=== PATIENT | female | born 1955 | race Caucasian/White ===

== ENCOUNTER 2020-12-14 20:12 | Emergency (ER) | payer MEDICARE, SELFPAY ==
[2020-12-14 20:07] VITALS: BP 155/74; PULSE 68; RESP 12; TEMP 36.9; O2SAT 100; BMI 27.2
--- NOTE | 2020-12-14 20:14 | XR_ITS ---
PROCEDURE: XR KNEE RT 3V CLINICAL INDICATION: knee pain COMPARISON: No exams were available for comparison FINDINGS: There is a faint lucency along medial aspect of the medial tibial plateau. This is only seen on one view. This could represent a nondisplaced fracture or an overlying artifact. CT may confirm if clinically warranted. Minimal osteoarthritic changes are noted. Other findings:None. IMPRESSION: Possible nondisplaced medial tibial plateau fracture. Consider CT for confirmation if clinically warranted. Dictated by: Margarito Peguero MD 12/15/2020 05:57 Margarito Peguero MD in [place] 12/15/2020 05:59
--- NOTE | 2020-12-14 20:44 | HMH.EDLOEX ---
ED Disposition Clinical Impression: Pain of meniscus of right knee Knee pain, right Qualifiers: Chronicity: unspecified Qualified Code(s): M25.561 - Pain in right knee Disposition: Home, Self-Care Condition on Discharge: Good Instructions: DI for Knee Pain Additional Instructions: advil/tyenol and see ortho for f/u and use splint as needed Referrals: Darwin Gross MD [Primary Care Provider] - Jonatan Velazquez MD [Staff Physician] - - Critical Care Critical Care Time: No Attestation: On 12/14/20, the high probability of a clinically significant, sudden or life threatening deterioration of the following system(s) required my full and direct attention, intervention and personal management. The time I documented below is in addition to time spent performing reported procedures but includes the following listed in this critical care notation. Medical Decision Making - Medical Records Medical records reviewed: Yes: I reviewed the patient's medical records. - Price Inquiry Pt receiving controlled substance: No Vital Signs: 12/14/20 20:07 Temperature 98.4 F Temperature Source Oral Pulse Rate [Right Brachial] 68 Respiratory Rate 12 Blood Pressure [Right Arm] 155/74 H Blood Pressure Mean [Right Arm] 101 Blood Pressure Source [Right Arm] Automatic Cuff Blood Pressure Position [Right Arm] Sitting 02 Sat by Pulse Oximetry 100 Oxygen Delivery Method Room Air Orders (Tests/Meds): ORDERS Category Date Time Status XR knee RT 3V Stat Exams 12/14/20 20:14 Ordered - Radiology Data #1 Image(s): Knee Image Reviewed: Yes I reviewed the patient's radiology image Preliminary Findings: No Fracture Seen Medical Decision Narrative: will need ortho eval Lower Extremity Injury HPI - General Chief Complaint: PAIN Stated Complaint: rt knee pain, fall 9 mos prior Time Seen by Provider: 12/14/20 20:30 Mode of Arrival: EMS Source of Information: Patient, EMS, Medical Record Limitations: No Limitations Description of Symptoms (Recalled from ER Triage Doc. by RN): pt presents for complaints of right knee pain, no recent injury. i think its dislocated ; pt states she fell approx 9 months ago and wants to get surgery on it. - History of Present Illness HPI Narrative: pt with prev injury to rt knee about 9 months ago and since has pain and feeling of instability with wt bearing - she has seen pcp - no hip pain or other jt c/o MD complaint: knee injury Onset (ago): week(s) Injury: Right: knee Type of Injury: unknown Place: home Severity: moderate Associated symptoms: able to partially bear weight Other symptoms: none - Related Data Home Medications Medication Instructions Recorded Confirmed No Known Home Medications 12/14/20 12/14/20 Allergies Allergy/AdvReac Type Severity Reaction Status Date / Time No Known Allergies Allergy Verified 12/14/20 20:12 [facility] History - Hepatitis A Screen Drug use history?: No High risk sexual behaviors?: No History of sexually transmitted infection?: No Currently employed?: No Childcare worker?: No Do you have indoor plumbing?: Yes Do you have electricity?: Yes Attestation statement:: This patient has been screened for Hepatitis A risk factors. I have reviewed the patient's past medical history: Yes ROS Obtained: Yes All systems reviewed & no additional complaints - Constitutional Constitutional: Denies fever(s) - Eyes Eyes: Denies change in vision - ENT Ears, Nose, Mouth, and Throat: Denies sore throat - Cardiovascular Cardiovascular: Denies chest pain - Respiratory Respiratory: Denies shortness of breath - Gastrointestinal Gastrointestingal: Denies: abdominal pain - Genitourinary Female Genitourinary: Denies pelvic pain - Musculoskeletal Musculoskeletal: Reports as per HPI, Reports joint pain, Denies joint swelling, Reports limited range of motion - Integumentary/Breasts Skin/Breast: Denies rash - Jimena
[2020-12-14 21:06] VITALS: BP 142/71; PULSE 71; RESP 15; TEMP 36.8; O2SAT 98
== END 2020-12-14 21:09 | disposition home or self-care (01) ==
PROVIDERS: Emergency Provider Emergency Medicine; PCP Family Medicine
DX: M25.561 Pain in right knee (principal)
CPT/HCPCS: 73562; 96365; 99282

== ENCOUNTER 2021-03-17 22:31 | Observation (INO) | payer MEDICARE, SELFPAY ==
--- NOTE | 2021-03-17 22:26 | ECG_ITS ---
APPROVED REPORT Exam: Resting ECG HR:53 bpm ECG Measurements Heart Rate 53 AXES OR 134 P 70 QRSd 88 QRS 76 QT 440 T 74 QTc 412 Conclusion Sinus bradycardia Otherwise normal ECG Electronically signed by : Sher Landrum, 03/19/2021 15:03:25
[2021-03-17 22:30] VITALS: BP 137/82; PULSE 65; RESP 18; TEMP 36.7; O2SAT 98; BMI 23.4
[2021-03-17 22:36] VITALS: BMI 23.4
[2021-03-17 22:48] LABS: Basophils # 0.1 K/mm3 (0-0.2); Basophils % 1.4 % (0.1-2.0); Eosinophils # 0.3 K/mm3 (0.0-0.4); Eosinophils % 4.8 % (0.1-12.0); Lymphocytes # 2.9 K/mm3 (0.7-4.5); Lymphocytes % 43.9 % (10-50); Mean Corpuscular HGB Conc 33.3 g/dL (31.8-35.4); Mean Corpuscular Hemoglobin 31.7 pg (27.0-31.2); Mean Corpuscular Volume 95.2 fl (81-99); Mean Platelet Volume 7.8 fl (7.4-10.4); Monocytes # 0.3 K/mm3 (0.1-1.0); Monocytes % 3.9 % (1.7-9.3); Platelet Count 223 K/mm3 (142-424); Red Cell Distribution Width 12.5 % (11.5-17.5); White Blood Count 6.6 K/mm3 (4.8-10.8)
[2021-03-17 22:49] LABS: Alanine Aminotransferase 12 U/L (12-78); Albumin Level 3.8 g/dl (3.5-5.0); Alkaline Phosphatase 85 U/L (38-126); Anion Gap 6.7 mEq/L (5-15); Aspartate Amino Transferase 20 U/L (14-36); Bilirubin,Direct 0.4 mg/dl (0.0-0.4); Bilirubin,Total 0.4 mg/dl (0.2-1.3); Blood Urea Nitrogen 29 mg/dl (7-17); Calcium 9.6 mg/dl (8.4-10.2); Carbon Dioxide 30 mmol/L (22.0-30.0); Chloride 105 mmol/L (98-107); Creatinine Clearance Estimated 49 mL/min (50-200); Estimated Glomerular Filt Rate 72 ml/min (>60); GFR (African American) 87 ML/MIN (>60); Glucose 104 mg/dl (74-100); Potassium 3.7 mmoL/L (3.5-5.1); Sodium 138 mmol/L (136-145); Total Protein,Serum 6.9 g/dl (6.3-8.2)
--- NOTE | 2021-03-17 22:51 | XR_ITS ---
PROCEDURE INFORMATION: Exam: XR Chest Exam date and time: 03/17/2021 10:51 PM Age: 65 years old Clinical indication: Angina pectoris; Patient HX: Chest pain; Additional info: Cp TECHNIQUE: Imaging protocol: XR of the chest. Views: 2 views. COMPARISON: No relevant prior studies available. FINDINGS: Lungs: The lungs are hyperexpanded with flattened hemidiaphragms, increased AP diameter and coarse interstitial prominence consistent with COPD. No lobar consolidation is seen. Pleural spaces: There is no pleural effusion or pneumothorax. Heart/Mediastinum: The cardiac silhouette and mediastinal contours are unremarkable. Bones/joints: The bones are demineralized but grossly intact. IMPRESSION: COPD.
[2021-03-17 22:54] LABS: C-Reactive Protein 4.7 mg/L (0-4)
[2021-03-17 23:00] VITALS: BP 132/71; PULSE 58; RESP 24; O2SAT 99
[2021-03-17 23:04] LABS: Troponin I < 0.01 ng/ml (0.00-0.034)
[2021-03-17 23:04] LABS: Lipase 194 U/L (23-300)
[2021-03-17 23:08] LABS: Procalcitonin 0.046 ng/mL (0.0-2.0)
[2021-03-17 23:11] LABS: Erythrocyte Sedimentation Rate 58 mm/hr (0-30)
[2021-03-17 23:30] VITALS: BP 146/79; PULSE 52; RESP 21; O2SAT 100
[2021-03-18] VITALS (13 sets, daily range): BP systolic 111–163; BP diastolic 68–83; PULSE 50–75; RESP 16–20; TEMP 36.5–36.7; O2SAT 96–100; BMI 26.0
--- NOTE | 2021-03-18 | CA_ITS ---
APPROVED REPORT Exam: Pharmacologic Technologist: Shantell Davidson, Ht: 4 ft 11 in Wt: 128 lbs BSA: 1.53 m2 HR: 61 bpm BP: 138/72 mmHg Medical History Medications: Naproxen,,,,, MeLOXICAM,,,,, PaXIL,,,,, Stress Test Details Test: LEXISCAN HR Resting HR: 57 bpm Max Heart Rate (APMHR): 156.234188 bpm Max HR Achieved: 103 bpm Target HR (85% APMHR): 132.038931 bpm % of APMHR: 66.03 Recovery HR: 81 bpm BP Resting BP: 138/72 mmHg Max BP: 149/76 mmHg Recovery BP: 135.0/66.0 mmHg ECG Resting ECG: Sinus lisa, cannot R/O old septal GA Clinical Exercise duration: 04:00 min Highest Stage Achieved: Exercise capacity: 1.0 METs Stress ECG Conclusion Symptoms: Mild SOA and chest discomfort. Headache and nausea. Arrhythmias/Ectopy: Occ PAC. ST-T Changes: No significant changes. Conclusion: Unremarkable Lexiscan stress. Myoview images reported separately. Test Summary REST . . . . . . . Resting REST 03:47 . . 57 . 138/ 72 . . Stage 1 . . . . . . . Cardiolite injected Stage 1 01:00 . . 98 . . . . Stage 2 01:00 . . 103 . 145/ 75 . . Stage 3 01:00 . . 93 . 145/ 77 . . Stage 4 01:00 . . 88 . 149/ 76 . Stop exercise at 04:00 RECOVERY 01:00 . . 91 . 137/ 74 . . RECOVERY 02:00 . . 80 . 137/ 74 . . RECOVERY 03:00 . . 82 . 135/ 66 . . RECOVERY 03:33 . . 80 . 135/ 66 . . Electronically signed by : Agusto Haynes, 03/18/2021 14:54:21
--- NOTE | 2021-03-18 00:14 | CT_ITS ---
PROCEDURE INFORMATION: Exam: CTA Chest With Contrast Exam date and time: 03/18/2021 12:14 AM Age: 65 years old Clinical indication: Intercostal; Patient HX: Chest pain. Smoker; Additional info: Cp TECHNIQUE: Imaging protocol: Computed tomographic angiography of the chest with contrast. 3D rendering (Not supervised by radiologist): MIP and/or 3D reconstructed images were created by the technologist. Radiation optimization: All CT scans at this facility use at least one of these dose optimization techniques: automated exposure control; mA and/or kV adjustment per patient size (includes targeted exams where dose is matched to clinical indication); or iterative reconstruction. Contrast material: ISOVUE 370; Contrast volume: 70 ml; Contrast route: INTRAVENOUS (IV); COMPARISON: CR XR CHEST 2V 03/17/2021 10:56 PM FINDINGS: Pulmonary arteries: There is no convincing evidence of a pulmonary embolus. Aorta: There is no aortic aneurysm or dissection. Lungs: There is centrilobular emphysema with mild dependent atelectasis. Pleural spaces: Unremarkable. No pneumothorax. No pleural effusion. Heart: Cardiac chambers appear grossly unremarkable and there is no pericardial effusion. Mediastinal space: There is a small hiatal hernia. Lymph nodes: There are mildly prominent lymph nodes in the mediastinum and both tere of unknown etiology. These may be reactive. Gallbladder and bile ducts: The gallbladder is surgically absent. Kidneys and ureters: There is a prominent extrarenal pelvis on the left. Bones/joints: No acute osseous abnormality Soft tissues: Unremarkable. IMPRESSION: 1. No convincing evidence of a significant pulmonary embolus. 2. Mild centrilobular emphysema. 3. Nonspecific mildly prominent mediastinal and hilar lymph nodes which may be reactive. 4. Status post cholecystectomy. 5. Small hiatal hernia. 6. Prominent extrarenal pelvis within left kidney.
--- NOTE | 2021-03-18 01:20 | HMH.EDCP ---
ED Disposition Clinical Impression: Tobacco abuse Chest pain Qualifiers: Chest pain type: precordial pain Qualified Code(s): R07.2 - Precordial pain Disposition: Admitted as Observation Condition on Discharge: Good Referrals: Darwin Gross MD [Primary Care Provider] - - Critical Care Critical Care Time: No Attestation: On 03/17/21, the high probability of a clinically significant, sudden or life threatening deterioration of the following system(s) required my full and direct attention, intervention and personal management. The time I documented below is in addition to time spent performing reported procedures but includes the following listed in this critical care notation. Medical Decision Making - Medical Records Medical records reviewed: Yes: I reviewed the patient's medical records. - Price Inquiry Pt receiving controlled substance: No Vital Signs: 03/17/21 22:30 Temperature 98.1 F Temperature Source Oral Pulse Rate [Apical] 65 Respiratory Rate 18 Blood Pressure [Right Arm] 137/82 Blood Pressure Mean [Right Arm] 100 Blood Pressure Source [Right Arm] Automatic Cuff Blood Pressure Position [Right Arm] Sitting 02 Sat by Pulse Oximetry 98 Oxygen Delivery Method Room Air - Lab Data Lab results reviewed: Yes: I reviewed the patient's lab results. Lab Results 03/17/21 22:32: Lipase 194 03/17/21 22:33: WBC 6.6, RBC 4.10 L, Hgb 13.0, Hct 39.0, MCV 95.2, MCH 31.7 H, MCHC 33.3, RDW 12.5, Plt Count 223, MPV 7.8, Neut % (Auto) 46.0, Lymph % (Auto) 43.9, [place] % (Auto) 3.9, Eos % (Auto) 4.8, Baso % (Auto) 1.4, Neut # (Auto) 3.0, Lymph # (Auto) 2.9, [place] # (Auto) 0.3, Eos # (Auto) 0.3, Baso # (Auto) 0.1 03/17/21 22:33: Sodium 138, Potassium 3.7, Chloride 105, Carbon Dioxide 30, Anion Gap 6.7, BUN 29 H, Creatinine 0.80, Estimated Creat Clear 49, Estimated GFR 72, Est GFR ( Amer) 87, Glucose 104 H, Calcium 9.6, Total Bilirubin 0.4, Direct Bilirubin 0.4, Conjugated Bilirubin 0.0, Indirect Bilirubin 0.0, Unconjugated Bilirubin 0.0, AST 20, ALT 12, Alkaline Phosphatase 85, Troponin I < 0.01, C-Reactive Protein 4.7 H, Total Protein 6.9, Albumin 3.8 03/17/21 22:33: ESR 58 H 03/17/21 22:33: Procalcitonin 0.046 03/18/21 01:18: Troponin I < 0.01 Result diagrams: 03/17/21 22:33 03/17/21 22:33 Orders (Tests/Meds): ED MEDICATIONS Generic Name Dose Route Start Last Admin Trade Name Freq PRN Reason Stop Dose Admin Sodium Chloride 1,000 mls @ 999 mls/hr 03/17/21 22:45 03/17/21 22:53 Sod Chlor 0.9% 1000ml Bag IV 03/17/21 23:45 999 mls/hr .Q1H1M ONEL Administration Discontinued Medications Generic Name Dose Route Start Last Admin Trade Name Freq PRN Reason Stop Dose Admin Ketorolac Tromethamine 30 mg 03/17/21 22:38 03/17/21 22:53 Ketorolac 30mg/Ml Vial IV 03/17/21 22:39 30 mg ONCE ONE Administration Morphine Sulfate 2 mg 03/17/21 23:52 03/17/21 23:57 Morphine 2mg/Ml Syringe IV 03/17/21 23:53 2 mg ONCE ONE Administration Nitroglycerin 1 gm 03/18/21 01:24 03/18/21 01:29 Nitroglycerin 1 Gm Ointment TD 03/18/21 01:25 1 gm ONCE ONE Administration ORDERS Category Date Time Status Covid-19 Nasal PCR ([facility]) Routine Lab 03/18/21 00:16 Received Troponin I Q3H Lab 03/18/21 04:45 Ordered - Radiology Data #1 Image(s): Chest Image Reviewed: Yes I reviewed the patient's radiology image Preliminary Findings: Abnormal (copd) - CT Data CT Scan: Chest Time Received: 01:[address] Reviewed: Yes: I have viewed the radiologist's interpretation Preliminary Findings: Normal/NAD - ECG Data Tracing #1 Normal Sinus Rhythm: Yes Ischemic changes: non-specific ST-T wave changes Tracing #2 Normal Sinus Rhythm: Yes Ischemic changes: non-specific ST-T wave changes - Physician Consults Physician Consulted: jak Reason -: Admission Medical Decision Narrative: new onset of chest pain - Chest Pain HPI - General Chief Complaint: Chest
--- NOTE | 2021-03-18 01:24 | ECG_ITS ---
APPROVED REPORT Exam: Resting ECG HR:50 bpm ECG Measurements Heart Rate 50 AXES WA 136 P 55 QRSd 94 QRS 56 QT 468 T 41 QTc 426 Conclusion Sinus bradycardia Otherwise normal ECG Electronically signed by : Sher Landrum, 03/19/2021 15:03:00
[2021-03-18 01:56] LABS: Troponin I < 0.01 ng/ml (0.00-0.034)
--- NOTE | 2021-03-18 04:08 | PC.NURSE ---
PT ARRIVED TO FLOOR VIA W/C FROM ED W/STAFF AT 040
--- NOTE | 2021-03-18 06:34 | PC.NURSE ---
Kayode [place] NOTIFIED OF CONSULT
[2021-03-18 06:52] LABS: Basophils # 0.1 K/mm3 (0-0.2); Basophils % 0.7 % (0.1-2.0); Eosinophils # 0.2 K/mm3 (0.0-0.4); Eosinophils % 3.8 % (0.1-12.0); Hemoglobin 12.5 g/dL (12.2-16.2); Lymphocytes # 1.9 K/mm3 (0.7-4.5); Mean Corpuscular HGB Conc 33.8 g/dL (31.8-35.4); Mean Corpuscular Hemoglobin 31.9 pg (27.0-31.2); Mean Corpuscular Volume 94.4 fl (81-99); Monocytes # 0.3 K/mm3 (0.1-1.0); Monocytes % 3.9 % (1.7-9.3); Neutrophils # 3.9 K/mm3 (1.8-7.8); Neutrophils % 61.7 % (37.0-80.0); Platelet Count 191 K/mm3 (142-424); Red Blood Count 3.92 M/mm3 (4.20-5.40); Red Cell Distribution Width 12.7 % (11.5-17.5); White Blood Count 6.4 K/mm3 (4.8-10.8)
[2021-03-18 07:04] LABS: Anion Gap 7.9 mEq/L (5-15); Blood Urea Nitrogen 22 mg/dl (7-17); Carbon Dioxide 25 mmol/L (22.0-30.0); Chloride 112 mmol/L (98-107); Chol/HDL Ratio 5.3 (1-3.5); Cholesterol 196 mg/dl (140-200); Creatinine Clearance Estimated 53 mL/min (50-200); Estimated Glomerular Filt Rate 72 ml/min (>60); GFR (African American) 87 ML/MIN (>60); Glucose 83 mg/dl (74-100); HDL Cholesterol 37 mg/dl (40-60); Magnesium 1.9 mg/dl (1.6-2.3); Potassium 3.9 mmoL/L (3.5-5.1); Sodium 141 mmol/L (136-145); Triglycerides 149 mg/dl (30-150); VLDL Cholesterol 30 mg/dL (0-40)
[2021-03-18 07:15] LABS: Direct LDL Cholesterol 125.99 mg/dL (100-129)
[2021-03-18 07:16] LABS: Troponin I < 0.01 ng/ml (0.00-0.034)
[2021-03-18 07:35] LABS: Calcium 8.5 mg/dl (8.4-10.2)
--- NOTE | 2021-03-18 07:39 | P.CONPHA_ITS ---
[facility] Pharmacy VTE Monitoring - Patient Demographics Admission date: 03/18/21 Report Date: 03/18/21 Time: 07:39 Allergies/Adverse Reactions: Patient Allergies No Known Allergies Allergy (Verified 12/14/20 20:12) Height: 1.5 m Weight: 58.542 kg Patient Problems: Current Active Problems Chest pain (Acute) Tobacco abuse (Acute) - VTE Risk Labs: VTE Related Lab Results Hgb 12.5 g/dL (12.2-16.2) 03/18/21 05:33 Hct 37.0 % (37.0-47.0) 03/18/21 05:33 Plt Count 191 K/mm3 (142-424) 03/18/21 05:33 BUN 22 mg/dl (7-17) H 03/18/21 05:33 Creatinine 0.80 mg/dl (0.52-1.04) 03/18/21 05:33 Estimated Creat Clear 53 mL/min (50-200) 03/18/21 05:33 Was VTE Risk Assessment Performed: Yes VTE Risk Level: Low Risk - Prophylaxis VTE Prophylaxis Ordered?: Yes Types of VTE Prophylaxis: TEDS Knee High Location of Applied Device: Bilateral Lower Extremeties
--- NOTE | 2021-03-18 07:51 | HMH.HP ---
*Admission Date: 03/18/21 *Chief complaint: Pressure and pain *History of present illness: 65-year-old white female who has excellent functional status, has risk factors of family history of her of heart disease and is a heavy smoker, who came to the emergency department because she was lying in bed last night and had the sudden onset of chest pressure and some pain and tightness with radiation into the left arm. She had no diaphoresis or nausea. Had no heartburn symptoms. In the emergency department chest pressure and pain was relieved with nitroglycerin. Transferred to floor for ongoing evaluation given her significant risk factors and serial enzymes. [facility] History I have reviewed the patient's past medical history: Yes Medical History: Denies:: Diabetes Mellitus Type 1, Diabetes Mellitus Type 2 *Have you ever received a pneumonia vaccine?: No *Have you received a flu vaccine this season?: Yes Other Medical History: Reports: Arthritis (rheumatoid) Other Surgeries: Yes: Cholecystectomy, Tubal Ligation - *Social History Last grade of school completed: 7th or 8th Smoking Status: Current every day smoker Tobacco Type: cigarettes # Packs/Day (cigarettes): 1 Alcohol Intake: never *Occupational Status:: disabled Housing: apartment Household Members: none *Travel in the last 8 weeks: None Family Hx:: Non-contributory Review of Systems - Review of Systems Review of systems:: pertinent systems reviewed and negative unless documented below - *Neurologic Denies headache(s), Denies seizure-like activity Meds Home Medications Medication Instructions Recorded Confirmed Type Naproxen Sodium [Aleve 220mg Cap] 220 mg PO BID 03/17/21 03/18/21 History Allergies Allergy/AdvReac Type Severity Reaction Status Date / Time No Known Allergies Allergy Verified 12/14/20 20:12 Exam Vital signs and Labs for Last 24 Hours: Temp Pulse Resp BP Pulse Ox 98.0 F 66 17 125/74 98 03/18/21 07:37 03/18/21 07:37 03/18/21 07:37 03/18/21 07:37 03/18/21 07:37 Laboratory Results - last 24 hr 03/17/21 22:32: Lipase 194 03/17/21 22:33: WBC 6.6, RBC 4.10 L, Hgb 13.0, Hct 39.0, MCV 95.2, MCH 31.7 H, MCHC 33.3, RDW 12.5, Plt Count 223, MPV 7.8, Neut % (Auto) 46.0, Lymph % (Auto) 43.9, [place] % (Auto) 3.9, Eos % (Auto) 4.8, Baso % (Auto) 1.4, Neut # (Auto) 3.0, Lymph # (Auto) 2.9, [place] # (Auto) 0.3, Eos # (Auto) 0.3, Baso # (Auto) 0.1 03/17/21 22:33: Sodium 138, Potassium 3.7, Chloride 105, Carbon Dioxide 30, Anion Gap 6.7, BUN 29 H, Creatinine 0.80, Estimated Creat Clear 49, Estimated GFR 72, Est GFR ( Amer) 87, Glucose 104 H, Calcium 9.6, Total Bilirubin 0.4, Direct Bilirubin 0.4, Conjugated Bilirubin 0.0, Indirect Bilirubin 0.0, Unconjugated Bilirubin 0.0, AST 20, ALT 12, Alkaline Phosphatase 85, Troponin I < 0.01, C-Reactive Protein 4.7 H, Total Protein 6.9, Albumin 3.8 03/17/21 22:33: ESR 58 H 03/17/21 22:33: Procalcitonin 0.046 03/18/21 01:18: Troponin I < 0.01 03/18/21 05:33: Troponin I < 0.01 03/18/21 05:33: WBC 6.4, RBC 3.92 L, Hgb 12.5, Hct 37.0, MCV 94.4, MCH 31.9 H, MCHC 33.8, RDW 12.7, Plt Count 191, MPV 8.0, Neut % (Auto) 61.7, Lymph % (Auto) 30.0, [place] % (Auto) 3.9, Eos % (Auto) 3.8, Baso % (Auto) 0.7, Neut # (Auto) 3.9, Lymph # (Auto) 1.9, [place] # (Auto) 0.3, Eos # (Auto) 0.2, Baso # (Auto) 0.1 03/18/21 05:33: Sodium 141, Potassium 3.9, Chloride 112 H, Carbon Dioxide 25, Anion Gap 7.9, BUN 22 H, Creatinine 0.80, Estimated Creat Clear 53, Estimated GFR 72, Est GFR ( Amer) 87, Glucose 83 D, Calcium 8.5 D, Magnesium 1.9, Triglycerides 149, Cholesterol 196, LDL Cholesterol Direct 125.99, VLDL Cholesterol 30, HDL Cholesterol 37 L, Cholesterol/HDL Ratio 5.3 H I & O for Last 24 hours: Intake & Output 03/15/21 03/16/21 03/17/21 03/18/21 11:59 11:59 11:59 11:59 Intake Total 1999 Balance 1999 Weight 129 lb 1 oz Microbiology Reports for the Last 24 Hours: Microbiology 03/18/21 00:16
--- NOTE | 2021-03-18 07:57 | HMH.PHAINT ---
MEDICATION RECONCILIATION COMPLETED ON PATIENT USING EXTERNAL FILL HISTORY FROM PHARMACY AND NAPROXEN PER PATIENT. -JESSI FLANNERYD
--- NOTE | 2021-03-18 07:58 | HMH.CNCARD ---
History of Present Illness Consult date: 03/18/21 Requesting physician: Sher Landrum Consult reason: chest pain Chief complaint: chest pain Additional Medical History:: 1. Tobacco use A. COPD 2. FH of CAD 3. History of mental illness but pt unable to further define 4. Arthritis History of present illness: 65-year-old white female who has excellent functional status, has risk factors of family history of her of heart disease and is a heavy smoker, who came to the emergency department because she was lying in bed last night and had the sudden onset of chest pressure and some pain and tightness with radiation into the left arm. She had no diaphoresis or nausea. Had no heartburn symptoms. In the emergency department chest pressure and pain was relieved with nitroglycerin. Transferred to floor for ongoing evaluation given her significant risk factors and serial enzymes. The above per Dr. Landrum Patient confirms the above information and describes the chest pain as a sharp stabbing sensation that lasted for several hours. She denies any prior cardiac history personally. She relates resolution of symptoms over the next several hours after 3 sublingual nitroglycerin. Patient denies any headache with the nitroglycerin and still has Nitropaste on at this time. Chest pain and arm pain reproducible with palpation. Patient denies any shortness of breath, nausea or vomiting. She has a chronic smoker but denies history of diabetes, hypertension or hyperlipidemia. No recent history of exertional dyspnea or chest pain but patient is not very active although she does live by herself. EKG is sinus bradycardia at 53 bpm and troponins have returned normal x3 overnight. [facility] History Medical History: Denies:: Diabetes Mellitus Type 1, Diabetes Mellitus Type 2 *Have you ever received a pneumonia vaccine?: No *Have you received a flu vaccine this season?: Yes Other Medical History: Reports: Arthritis (rheumatoid) Other Surgeries: Yes: Cholecystectomy, Tubal Ligation - *Social History Last grade of school completed: 7th or 8th Smoking Status: Current every day smoker Tobacco Type: cigarettes # Packs/Day (cigarettes): 1 Alcohol Intake: never *Occupational Status:: disabled Housing: apartment Household Members: none *Travel in the last 8 weeks: None Family Hx:: Non-contributory Meds Home Medications Medication Instructions Recorded Confirmed Type Naproxen Sodium [Aleve 220mg Cap] 220 mg PO BID 03/17/21 03/18/21 History Meloxicam 15 mg PO DAILY 03/18/21 03/18/21 History PARoxetine HCl [Paxil] 20 mg PO DAILY 03/18/21 03/18/21 History Allergies Allergy/AdvReac Type Severity Reaction Status Date / Time No Known Allergies Allergy Verified 12/14/20 20:12 Exam Vital signs and Labs for Last 24 Hours: Temp Pulse Resp BP Pulse Ox 98.0 F 66 17 125/74 98 03/18/21 07:37 03/18/21 07:37 03/18/21 07:37 03/18/21 07:37 03/18/21 07:37 Laboratory Results - last 24 hr 03/17/21 22:32: Lipase 194 03/17/21 22:33: WBC 6.6, RBC 4.10 L, Hgb 13.0, Hct 39.0, MCV 95.2, MCH 31.7 H, MCHC 33.3, RDW 12.5, Plt Count 223, MPV 7.8, Neut % (Auto) 46.0, Lymph % (Auto) 43.9, [place] % (Auto) 3.9, Eos % (Auto) 4.8, Baso % (Auto) 1.4, Neut # (Auto) 3.0, Lymph # (Auto) 2.9, [place] # (Auto) 0.3, Eos # (Auto) 0.3, Baso # (Auto) 0.1 03/17/21 22:33: Sodium 138, Potassium 3.7, Chloride 105, Carbon Dioxide 30, Anion Gap 6.7, BUN 29 H, Creatinine 0.80, Estimated Creat Clear 49, Estimated GFR 72, Est GFR ( Amer) 87, Glucose 104 H, Calcium 9.6, Total Bilirubin 0.4, Direct Bilirubin 0.4, Conjugated Bilirubin 0.0, Indirect Bilirubin 0.0, Unconjugated Bilirubin 0.0, AST 20, ALT 12, Alkaline Phosphatase 85, Troponin I < 0.01, C-Reactive Protein 4.7 H, Total Protein 6.9, Albumin 3.8 03/17/21 22:33: ESR 58 H 03/17/21 22:33: Procalcitonin 0.046 03/18/21 01:18: Troponin I < 0.01 03/18/21 05:33: Troponin I < 0.01 03/18/21 05:33: WBC 6.4, RBC 3.92 L, Hgb 12.5, Hct 37
--- NOTE | 2021-03-18 08:00 | CA_ITS ---
APPROVED REPORT EXAM: Comprehensive 2D, Doppler, and color-flow Echocardiogram Director Hris: Sonia Qureshi CRT Ht: 5 ft 0 in Wt: 120lbs BSA: 1.50 BP: 137/82 mmHg Indications: Chest Pain, COPD 2D Dimensions LVOT 1.65 cm (M/F) 1.5-2.5 LA Volume 33.60 mL LA Volume Index 22.40 mL/m2 (M/F) 16-34 M-Mode Dimensions RVDd 3.01 cm (0.9-2.6) LA Diam 3.77 cm (1.9-4.0) LVDd 4.16 cm (3.5-5.7) Ao Diam 3.19 cm (2.0-3.7) LVDs 2.75 cm (3.5-5.7) IVSd 1.47 cm (0.6-1.1) PWd 0.94 cm (0.6-1.1) EF (Teich) 63.20% FS 33.90% EDV (Teich) 76.80 mL TAPSE 1.78 (<1.7) ESV (Teich) 28.30 mL LV Diastology E Decel Time 150.00 (160-240 msec) E/A Ratio 1.24 MED E' 10.70 (< 7 cm/sec) MED A' 7.00 cm/s E'/MED E' Ratio 9.28 (>14) LAT E' 11.70 (<10 cm/sec) LAT A' 7.60 cm/s E/LAT E' Ratio 8.49 (>14) Aortic Valve AO Peak GR. 6.50 mmHg Mitral Valve MV E Max Jonathan. 99.00 (40-130 cm/s) MV A Velocity 80.00 (40-130 cm/s) E/A Ratio 1.24 MV Decel. Time 150.00 (160-240 ms) MV PHT 44.00 ms Pulmonary Valve PV Peak Velocity 120.00 (50-150 cm/s) Tricuspid Valve TR P. Velocity 274.00 cm/s RAP Estimate 10.00 mmHg RVSP 40.00 mmHg Left Ventricle Left atrium is normal size, left ventricle is normal size, there is no concentric left ventricular hypertrophy, visually estimated ejection fraction 55% with no regional wall motion abnormality, diastolic parameters are within normal range. Right Ventricle Right atrium is normal size, right ventricle is qualitatively mildly enlarged with normal contractility. Aortic Valve Aortic valve is minimally thickened and fibrosed, there is no aortic stenosis or aortic insufficiency. Mitral Valve Mitral valve is grossly normal, there is trace mitral regurgitation. Tricuspid Valve Tricuspid valve grossly normal, there is trace tricuspid regurgitation, tricuspid regurgitation jet velocity is inadequate for calculation of the right ventricular systolic pressure. Pulmonic Valve Pulmonic valve is poorly visualized. Great Vessels Aortic root is normal size. Inferior vena cava is normal size with normal inspiratory collapse. Pericardium No significant pericardial effusion noted. Conclusion 1. Normal left ventricular size, preserved left ventricular systolic function, visually estimated ejection fraction 55% with no regional wall motion abnormality, diastolic parameters are within normal range. 2. Qualitatively mildly enlarged right ventricle with normal contractility. 3. Trace mitral and tricuspid regurgitation. 4. No significant pericardial effusion noted. Electronically signed by : Agusto Haynes, 03/18/2021 16:44:44
--- NOTE | 2021-03-18 08:03 | NM_ITS ---
APPROVED REPORT Exam: Nuclear Stress Test Indication: Chest pain, SOB, Tobacco use, Family history Patient Location: Inpatient Stress Tech: Shantell GOMEZ Tech:CLAIRE Dee RT(R)(N) Ht: 4 ft 11 in Wt: 110 lbs Bra Size: C HR: 61 bpm BP: 138/72 mmHg BSA: 1.43 m2 BMI: 22.2 History: Chest pain, SOB, Tobacco use, Family history Procedure: Patient received a 0.4 mg of intravenous Lexiscan, resting heart rate 61 bpm, resting blood pressure 138/72 mmHg, with Lexiscan maximum heart rate achived was 101 bpm which is Less than 85 % of the maximum predicted heart rate and blood pressure was 145/75 mmHg. Electrocardiogram Resting electrocardiogram showed sinus rhythm, with Lexiscan there is less than 1.[address] segment depression noted from the baseline EKG. The EKG portion of the Lexiscan is nondiagnostic. Cardiac Stress and Resting SPECT Images: Cardiac Stress and Resting SPECT images were obtained using technetium 99m Myoview 31.3 mCi stress and 10.49 mCi at rest. Gated SPECT for analysis of segmental wall motion and calculation of the ejection fraction also done. Prone images were also obtained. Cardiac stress and rest SPECT images show uniform myocardial activity without segmental perfusion abnormality, computer derived ejection fraction is 64% with no regional wall motion abnormality, right ventricle is normal size and contractility. Conclusion: 1. The EKG portion of the Lexiscan is nondiagnostic. 2. No scintigraphic evidence of reversible ischemia seen, computer derived ejection fraction 64% with no regional wall motion abnormality, right ventricle is normal size and contractility. 3. Normal Lexiscan Myoview study. Electronically signed by : Agusto Haynes, 03/18/2021 15:35:11
--- NOTE | 2021-03-18 17:04 | HMH.DCSUM ---
General - General Admission date:: 03/18/21 Discharge date: 03/18/21 HPI HPI: 65-year-old white female who has excellent functional status, has risk factors of family history of her of heart disease and is a heavy smoker, who came to the emergency department because she was lying in bed last night and had the sudden onset of chest pressure and some pain and tightness with radiation into the left arm. She had no diaphoresis or nausea. Had no heartburn symptoms. In the emergency department chest pressure and pain was relieved with nitroglycerin. Transferred to floor for ongoing evaluation given her significant risk factors and serial enzymes. Hospital Course Hospital Course: Patient admitted, serial enzymes,and EKG unremarkable. CXR- COPD. CTA negative for PE. Cardiology consulted who recommended Echo and GXT. Echo showed mildly enlarged RV, trace MR/TR, no wall motion abnormalities with EF 55%. Lexiscan GXT was normal. Discharge home, stop naproxen as she is on meloxicam as well. FU in office in 1 week to evaluate for non cardiac causes of her chest pain. Objective Vital signs: Temp Pulse Resp BP Pulse Ox 98.1 F 75 17 111/68 100 03/18/21 15:26 03/18/21 15:26 03/18/21 15:26 03/18/21 15:26 03/18/21 15:26 Narrative: Alert and oriented x 3. RRR. LS diminished in bases. Abdomen soft and nontender. ENT exam unremarkable. Psych-affect normal Results Labs on day of discharge: Labs from last 24 hours 03/18/21 03/18/21 03/18/21 05:33 05:33 05:33 WBC 6.4 RBC 3.92 L Hgb 12.5 Hct 37.0 MCV 94.4 MCH 31.9 H MCHC 33.8 RDW 12.7 Plt Count 191 MPV 8.0 Neut % (Auto) 61.7 Lymph % (Auto) 30.0 [place] % (Auto) 3.9 Eos % (Auto) 3.8 Baso % (Auto) 0.7 Neut # (Auto) 3.9 Lymph # (Auto) 1.9 [place] # (Auto) 0.3 Eos # (Auto) 0.2 Baso # (Auto) 0.1 ESR Sodium 141 Potassium 3.9 Chloride 112 H Carbon Dioxide 25 Anion Gap 7.9 BUN 22 H Creatinine 0.80 Estimated Creat Clear 53 Estimated GFR 72 Est GFR ( Amer) 87 Glucose 83 D Calcium 8.5 D Magnesium 1.9 Total Bilirubin Direct Bilirubin Conjugated Bilirubin Indirect Bilirubin Unconjugated Bilirubin AST ALT Alkaline Phosphatase Troponin I < 0.01 C-Reactive Protein Total Protein Albumin Triglycerides 149 Cholesterol 196 LDL Cholesterol Direct 125.99 VLDL Cholesterol 30 HDL Cholesterol 37 L Cholesterol/HDL Ratio 5.3 H Lipase Procalcitonin 03/18/21 03/17/21 03/17/21 01:18 22:33 22:33 WBC RBC Hgb Hct MCV MCH MCHC RDW Plt Count MPV Neut % (Auto) Lymph % (Auto) [place] % (Auto) Eos % (Auto) Baso % (Auto) Neut # (Auto) Lymph # (Auto) [place] # (Auto) Eos # (Auto) Baso # (Auto) ESR 58 H Sodium Potassium Chloride Carbon Dioxide Anion Gap BUN Creatinine Estimated Creat Clear Estimated GFR Est GFR ( Amer) Glucose Calcium Magnesium Total Bilirubin Direct Bilirubin Conjugated Bilirubin Indirect Bilirubin Unconjugated Bilirubin AST ALT Alkaline Phosphatase Troponin I < 0.01 C-Reactive Protein Total Protein Albumin Triglycerides Cholesterol LDL Cholesterol Direct VLDL Cholesterol HDL Cholesterol Cholesterol/HDL Ratio Lipase Procalcitonin 0.046 03/17/21 03/17/21 03/17/21 22:33 22:33 22:32 WBC 6.6 RBC 4.10 L Hgb 13.0 Hct 39.0 MCV 95.2 MCH 31.7 H MCHC 33.3 RDW 12.5 Plt Count 223 MPV 7.8 Neut % (Auto) 46.0 Lymph % (Auto) 43.9 [place] % (Auto) 3.9 Eos % (Auto) 4.8 Baso % (Auto) 1.4 Neut # (Auto) 3.0 Lymph # (Auto) 2.9 [place] # (Auto) 0.3 Eos # (Auto) 0.3 Baso # (Auto) 0.1 ESR Sodium 138 Potassium 3.7 Chloride 105
== END 2021-03-18 18:50 | disposition home or self-care (01) ==
LOC: ER 03-18 02:36 → 2ND 03-18 02:48
PROVIDERS: Admitting Provider Internal Medicine Adolescent Medicine; Emergency Provider Emergency Medicine; PCP Family Medicine; Visit Provider Internal Medicine Adolescent Medicine
DX: R07.9 Chest pain, unspecified (principal); I25.10 Atherosclerotic heart disease of native coronary artery without angina pectoris; E11.9 Type 2 diabetes mellitus without complications
CPT/HCPCS: 71046; 71275; 78452; 80048; 80061; 80076; 83690; 83735; 84145; 84484; 85025; 85651; 86140; 93005; 93017; 93306; 96365; 96366; 96375; 99284; G0378; J2785; U0003

== ENCOUNTER 2021-03-20 20:18 | Emergency (ER) | payer MEDICARE, SELFPAY ==
[2021-03-20] VITALS (8 sets, daily range): BP systolic 103–151; BP diastolic 52–87; PULSE 67–95; RESP 16–21; TEMP 36.7; O2SAT 96–98; BMI 23.2
--- NOTE | 2021-03-20 20:12 | ECG_ITS ---
APPROVED REPORT Exam: Resting ECG HR:73 bpm ECG Measurements Heart Rate 73 AXES [place] 136 P 62 QRSd 88 QRS 63 QT 426 T 68 QTc 469 Conclusion Normal sinus rhythm Normal ECG Electronically signed by : Sher Landrum, 03/21/2021 20:27:22
--- NOTE | 2021-03-20 20:37 | XR_ITS ---
PROCEDURE INFORMATION: Exam: XR Chest Exam date and time: 03/20/2021 8:37 PM Age: 65 years old Clinical indication: Left-sided chest pain; Patient HX: Left chest pain for 1 day. Nonsmoker TECHNIQUE: Imaging protocol: XR of the chest. Views: 2 views. COMPARISON: CR XR CHEST 2V 03/17/2021 10:56 PM FINDINGS: Lungs: Hyperinflation. No consolidation. Pleural spaces: Unremarkable. No pleural effusion. No pneumothorax. Heart/Mediastinum: Unremarkable. No cardiomegaly. Bones/joints: Unremarkable. IMPRESSION: No acute findings.
[2021-03-20 20:44] LABS: Basophils # 0.1 K/mm3 (0-0.2); Basophils % 1.2 % (0.1-2.0); Eosinophils # 0.3 K/mm3 (0.0-0.4); Eosinophils % 4.6 % (0.1-12.0); Hematocrit 38.1 % (37.0-47.0); Hemoglobin 12.4 g/dL (12.2-16.2); Lymphocytes # 2.3 K/mm3 (0.7-4.5); Lymphocytes % 36.5 % (10-50); Mean Corpuscular HGB Conc 32.6 g/dL (31.8-35.4); Mean Corpuscular Hemoglobin 31.6 pg (27.0-31.2); Mean Platelet Volume 7.9 fl (7.4-10.4); Monocytes # 0.2 K/mm3 (0.1-1.0); Monocytes % 3.5 % (1.7-9.3); Neutrophils # 3.4 K/mm3 (1.8-7.8); Neutrophils % 54.3 % (37.0-80.0); Platelet Count 215 K/mm3 (142-424); Red Blood Count 3.93 M/mm3 (4.20-5.40); Red Cell Distribution Width 12.8 % (11.5-17.5); White Blood Count 6.3 K/mm3 (4.8-10.8)
[2021-03-20 20:47] LABS: Alanine Aminotransferase 24 U/L (12-78); Albumin Level 3.9 g/dl (3.5-5.0); Alkaline Phosphatase 92 U/L (38-126); Anion Gap 6.6 mEq/L (5-15); Aspartate Amino Transferase 24 U/L (14-36); Bilirubin,Direct 0.3 mg/dl (0.0-0.4); Bilirubin,Total 0.3 mg/dl (0.2-1.3); Blood Urea Nitrogen 17 mg/dl (7-17); Calcium 8.9 mg/dl (8.4-10.2); Carbon Dioxide 27 mmol/L (22.0-30.0); Chloride 109 mmol/L (98-107); Creatinine Clearance Estimated 47 mL/min (50-200); Estimated Glomerular Filt Rate 72 ml/min (>60); GFR (African American) 87 ML/MIN (>60); Glucose 151 mg/dl (74-100); Potassium 3.6 mmoL/L (3.5-5.1); Sodium 139 mmol/L (136-145); Total Protein,Serum 6.9 g/dl (6.3-8.2)
[2021-03-20 20:53] LABS: C-Reactive Protein 11.8 mg/L (0-4)
[2021-03-20 21:07] LABS: Erythrocyte Sedimentation Rate 46 mm/hr (0-30); Troponin I < 0.01 ng/ml (0.00-0.034)
--- NOTE | 2021-03-20 21:26 | HMH.EDCP ---
ED Disposition Clinical Impression: Chest pain Qualifiers: Chest pain type: precordial pain Qualified Code(s): R07.2 - Precordial pain Disposition: Home, Self-Care Condition on Discharge: Good Instructions: DI for Chest Pain Additional Instructions: see card clinic monday am 900 and recheck if needed prior Prescriptions: Isosorbide Mononitrate [Imdur 30mg ER tablet] 30 mg PO DAILY #10 tab.er.24h Transmission Status: Pending to [facility] Referrals: Darwin Gross MD [Primary Care Provider] - - Critical Care Critical Care Time: No Attestation: On 03/20/21, the high probability of a clinically significant, sudden or life threatening deterioration of the following system(s) required my full and direct attention, intervention and personal management. The time I documented below is in addition to time spent performing reported procedures but includes the following listed in this critical care notation. Medical Decision Making - Medical Records Medical records reviewed: Yes: I reviewed the patient's medical records. - Price Inquiry Pt receiving controlled substance: No Vital Signs: 03/20/21 20:14 03/20/21 20:30 03/20/21 21:00 Temperature 98.1 F Temperature Source Oral Pulse Rate 95 H 80 Pulse Rate [Left Radial] 72 Respiratory Rate 18 21 19 Blood Pressure 103/52 L 125/74 Blood Pressure [Right Arm] 123/75 Blood Pressure Mean [Right Arm] 91 Blood Pressure Source [Right Arm] Automatic Cuff Blood Pressure Position [Right Arm] Supine 02 Sat by Pulse Oximetry 97 97 97 Oxygen Delivery Method Room Air 03/20/21 21:30 03/20/21 22:00 03/20/21 22:30 Temperature Temperature Source Pulse Rate 67 81 74 Pulse Rate [Left Radial] Respiratory Rate 21 16 18 Blood Pressure 136/79 139/74 128/74 Blood Pressure [Right Arm] Blood Pressure Mean [Right Arm] Blood Pressure Source [Right Arm] Blood Pressure Position [Right Arm] 02 Sat by Pulse Oximetry 96 98 97 Oxygen Delivery Method - Lab Data Lab results reviewed: Yes: I reviewed the patient's lab results. Lab Results 03/20/21 20:24: WBC 6.3, RBC 3.93 L, Hgb 12.4, Hct 38.1, MCV 97.0, MCH 31.6 H, MCHC 32.6, RDW 12.8, Plt Count 215, MPV 7.9, Neut % (Auto) 54.3, Lymph % (Auto) 36.5, [place] % (Auto) 3.5, Eos % (Auto) 4.6, Baso % (Auto) 1.2, Neut # (Auto) 3.4, Lymph # (Auto) 2.3, [place] # (Auto) 0.2, Eos # (Auto) 0.3, Baso # (Auto) 0.1, ESR 46 H 03/20/21 20:24: Sodium 139, Potassium 3.6, Chloride 109 H, Carbon Dioxide 27, Anion Gap 6.6, BUN 17, Creatinine 0.80, Estimated Creat Clear 47, Estimated GFR 72, Est GFR ( Amer) 87, Glucose 151 H, Calcium 8.9, Total Bilirubin 0.3, Direct Bilirubin 0.3, Conjugated Bilirubin 0.0, Indirect Bilirubin 0.0, Unconjugated Bilirubin 0.0, AST 24, ALT 24 D, Alkaline Phosphatase 92, Troponin I < 0.01, C-Reactive Protein 11.8 H D, Total Protein 6.9, Albumin 3.9 03/20/21 23:35: Troponin I < 0.01 Result diagrams: 03/20/21 20:24 03/20/21 20:24 Orders (Tests/Meds): ED MEDICATIONS Generic Name Dose Route Start Last Admin Trade Name Freq PRN Reason Stop Dose Admin Sodium Chloride 1,000 mls @ 999 mls/hr 03/20/21 20:45 03/20/21 21:08 Sod Chlor 0.9% 1000ml Bag IV 03/20/21 21:45 999 mls/hr .Q1H1M ONEL Administration Nitroglycerin 0.4 mg 03/20/21 20:37 03/20/21 20:19 Nitroglycerin 0.4mg Sl Tablet SL 04/19/21 20:36 0.4 mg Q5MINP PRN Administration Chest Pain Sodium Chloride 8 ml 03/20/21 20:44 Sodium Chloride 0.9% 10ml Vial IV 04/19/21 20:43 NEEDED PRN dilute pepcid Discontinued Medications Generic Name Dose Route Start Last Admin Trade Name Freq PRN Reason Stop Dose Admin Famotidine 20 mg 03/20/21 20:44 03/20/21 21:23 Famotidine 20mg/2ml Vial IV 03/20/21 20:45 20 mg ONCE ONE Administration Ketorolac Tromethamine 30 mg 03/20/21 21:26 03/20/21 21:28 Ketorolac 30mg/Ml Vial IV 03/20/21 21:27 30 mg ONCE ONE Adm
[2021-03-21] VITALS: BP 118/67; PULSE 67; RESP 17; O2SAT 96
[2021-03-21 00:10] LABS: Troponin I < 0.01 ng/ml (0.00-0.034)
[2021-03-21 00:30] VITALS: BP 142/80; PULSE 71; RESP 17; O2SAT 97
[2021-03-21 01:04] VITALS: BP 135/86; PULSE 63; O2SAT 99
[2021-03-21 01:23] VITALS: BP 132/84; PULSE 65; RESP 18; TEMP 36.5; O2SAT 99
== END 2021-03-21 01:24 | disposition home or self-care (01) ==
PROVIDERS: Emergency Provider Emergency Medicine; PCP Family Medicine
DX: R07.2 Precordial pain (principal); F17.210 Nicotine dependence, cigarettes, uncomplicated; M06.9 Rheumatoid arthritis, unspecified
CPT/HCPCS: 71046; 80048; 80076; 84484; 85025; 85651; 86140; 93005; 96365; 96375; 99282

== ENCOUNTER 2021-03-29 16:47 | Emergency (ER) | payer MEDICARE, SELFPAY ==
[2021-03-29 16:47] VITALS: BP 133/73; PULSE 77; RESP 16; TEMP 36.8; O2SAT 97; BMI 22.2
[2021-03-29 16:51] VITALS: BP 133/73; PULSE 77; O2SAT 96
--- NOTE | 2021-03-29 16:56 | XR_ITS ---
PROCEDURE INFORMATION: Exam: XR Right Knee Exam date and time: 03/29/2021 4:56 PM Age: 65 years old Clinical indication: Injury or trauma; Fall; Blunt trauma; Knee; Right; Additional info: Fall, knee pain TECHNIQUE: Imaging protocol: XR Right knee. Views: 3 views. COMPARISON: CR XR KNEE RT 3V 12/14/2020 8:44 PM FINDINGS: Bones/joints: Normal. Soft tissues: Normal. IMPRESSION: No acute findings.
--- NOTE | 2021-03-29 16:56 | HMH.EDGENADL ---
ED Disposition Clinical Impression: Contusion of right knee Qualifiers: Encounter type: initial encounter Qualified Code(s): S80.01XA - Contusion of right knee, initial encounter Strain of patellar tendon Qualifiers: Encounter type: initial encounter Laterality: right Qualified Code(s): S86.811A - Strain of other muscle(s) and tendon(s) at lower leg level, right leg, initial encounter Disposition: Home, Self-Care Condition on Discharge: Good Instructions: DI for Patellofemoral Pain Syndrome-Adult, DI for Knee Pain Additional Instructions: You have been evaluated for fall, right knee pain. No fracture or effusion identified. Please follow-up with your primary care doctor. Return to the emergency department for any new or worsening symptoms. Referrals: Darwin Gross MD [Primary Care Provider] - Time of Disposition: 17:01 - Critical Care Critical Care Time: No Attestation: On 03/29/21, the high probability of a clinically significant, sudden or life threatening deterioration of the following system(s) required my full and direct attention, intervention and personal management. The time I documented below is in addition to time spent performing reported procedures but includes the following listed in this critical care notation. Medical Decision Making - Medical Records Medical records reviewed: Yes: I reviewed the patient's medical records. - Price Inquiry Pt receiving controlled substance: No Vital Signs: 03/29/21 16:47 03/29/21 16:51 Temperature 98.3 F Temperature Source Oral Pulse Rate 77 Pulse Rate [Right] 77 Respiratory Rate 16 Blood Pressure 133/73 Blood Pressure [Right Arm] 133/73 Blood Pressure Mean [Right Arm] 93 Blood Pressure Source [Right Arm] Automatic Cuff Blood Pressure Position [Right Arm] Sitting 02 Sat by Pulse Oximetry 97 96 Oxygen Delivery Method Room Air Orders (Tests/Meds): ORDERS Category Date Time Status XR knee RT 3V Stat Exams 03/29/21 16:56 Ordered Medical Decision Narrative: In summary this is a 65-year-old female presenting to the emergency department with traumatic right knee pain. Clinically stable on arrival. Vital signs within normal limits. She is able to ambulate without difficulty. Tenderness just inferior to the patella. Concern for patellar tendon sprain, strain. Cannot exclude effusion, fracture. Will obtain x-rays of the right knee. Xrays personally reviewed and interpreted. No patellar fracture. No clear tibial fracture. No effusion or other abnormality. Patient given 15 mg IM Toradol. Recommended to follow-up with her primary care physician. Given return precautions. Stable for discharge. General Adult HPI - General Chief complaint: PAIN Stated complaint: right knee pain Time Seen by Provider: 03/29/21 16:56 Mode of Arrival: EMS Limitations: No Limitations Description of Symptoms (Recalled from ER Triage Doc. by RN): pt advises she fell down the hill a year ago and and c/o pain in her right knee. Advises she has been seen by multiple hospitals and docs who tell her everything is ok with her knee but she knows there is something wrong with her knee. - History of Present Illness HPI narrative: 65-year-old female presenting to the emergency department with knee pain. She had a fall 1 year ago. Has had pain in the front portion of her knee since then. Over the last 2 days she has had worsening pain over the patella and the right medial joint line. Pain is described as constant and throbbing, sharp with motion and bending. No numbness, weakness, tingling in her foot. Does not feel that her knee is unstable. She is able to ambulate with a cane. Takes Aleve for pain. No fevers, chills. No posterior knee pain. No calf pain. No history of DVT or PE. - Related Data Home Medications Medication Instructions Recorded Confirmed Meloxicam [Mobic 15 mg tab] 15 mg PO DAILY 03/20/21 03/29/21 PARoxetine HCl [Paxil
--- NOTE | 2021-03-29 17:23 | PC.NURSE ---
pt gone for xray
[2021-03-29 18:58] VITALS: BP 132/70; PULSE 70; RESP 16; TEMP 36.7; O2SAT 98
== END 2021-03-29 19:00 | disposition home or self-care (01) ==
PROVIDERS: Emergency Provider Emergency Medicine; PCP Family Medicine
DX: S80.01XA Contusion of right knee, initial encounter (principal); S86.811A Strain of other muscle(s) and tendon(s) at lower leg level, right leg, initial encounter; F17.210 Nicotine dependence, cigarettes, uncomplicated
CPT/HCPCS: 73562; 99282

== ENCOUNTER 2021-04-13 18:32 | Emergency (ER) | payer MEDICARE, SELFPAY ==
[2021-04-13 18:34] VITALS: BP 123/68; PULSE 76; RESP 16; TEMP 36.8; O2SAT 97; BMI 22.2
--- NOTE | 2021-04-13 18:44 | ECG_ITS ---
APPROVED REPORT Exam: Resting ECG HR:73 bpm ECG Measurements Heart Rate 73 AXES AL 136 P 47 QRSd 90 QRS 29 QT 412 T 43 QTc 453 Conclusion Normal sinus rhythm Normal ECG Electronically signed by : Sher Landrum, 04/14/2021 17:57:12
--- NOTE | 2021-04-13 18:44 | XR_ITS ---
PROCEDURE INFORMATION: Exam: XR Chest Exam date and time: 04/13/2021 6:44 PM Age: 65 years old Clinical indication: Other: Unspecfied; Patient HX: Chest pain upon waking up today. Smoker. No chest surgeries. TECHNIQUE: Imaging protocol: XR of the chest. Views: 1 view. Total images: 2 COMPARISON: CR XR CHEST 2V 03/20/2021 8:39 PM FINDINGS: Lungs: Question mild hyperexpansion and hyperlucency with mild diaphragmatic flattening suggesting possible COPD. Pulmonary vasculature grossly normal. No gross pulmonary infiltrates. Pleural spaces: No pleural effusion. No pneumothorax. Heart/Mediastinum: Heart size normal. No tracheal/mediastinal shift. Vasculature: Mild aortic ectasia/tortuosity and mild calcific atherosclerosis. Bones/joints: No acute osseous abnormalities are identified. Osteopenia. IMPRESSION: 1. No acute thoracic process. No significant change. 2. Suspect COPD.
[2021-04-13 19:00] VITALS: BP 150/77; PULSE 78; O2SAT 100
[2021-04-13 19:19] VITALS: BP 144/73; PULSE 78; O2SAT 98
[2021-04-13 19:22] LABS: Basophils # 0.1 K/mm3 (0-0.2); Basophils % 1.4 % (0.1-2.0); Eosinophils # 0.2 K/mm3 (0.0-0.4); Eosinophils % 4.2 % (0.1-12.0); Hemoglobin 12.5 g/dL (12.2-16.2); Lymphocytes # 2.2 K/mm3 (0.7-4.5); Lymphocytes % 37.9 % (10-50); Mean Corpuscular HGB Conc 33.9 g/dL (31.8-35.4); Mean Corpuscular Hemoglobin 32.4 pg (27.0-31.2); Mean Corpuscular Volume 95.4 fl (81-99); Mean Platelet Volume 7.8 fl (7.4-10.4); Monocytes # 0.3 K/mm3 (0.1-1.0); Monocytes % 4.4 % (1.7-9.3); Platelet Count 265 K/mm3 (142-424); Red Blood Count 3.87 M/mm3 (4.20-5.40); Red Cell Distribution Width 12.9 % (11.5-17.5); White Blood Count 5.8 K/mm3 (4.8-10.8)
--- NOTE | 2021-04-13 19:32 | HMH.EDGENADL ---
ED Disposition Clinical Impression: Atypical chest pain Disposition: Left Against Medical Advice Condition on Discharge: Fair Instructions: DI for Atypical Chest Pain Additional Instructions: Normal activity Referrals: Tito Skinner [Primary Care Provider] - - Critical Care Critical Care Time: No Attestation: On 04/13/21, the high probability of a clinically significant, sudden or life threatening deterioration of the following system(s) required my full and direct attention, intervention and personal management. The time I documented below is in addition to time spent performing reported procedures but includes the following listed in this critical care notation. Medical Decision Making - Medical Records Medical records reviewed: Yes: I reviewed the patient's medical records. - Price Inquiry Pt receiving controlled substance: No Vital Signs: 04/13/21 18:34 04/13/21 19:00 04/13/21 19:19 Temperature 98.3 F Temperature Source Oral Pulse Rate 78 78 Pulse Rate [Right] 76 Respiratory Rate 16 Blood Pressure 150/77 H 144/73 H Blood Pressure [Right Arm] 123/68 Blood Pressure Mean [Right Arm] 86 Blood Pressure Source [Right Arm] Automatic Cuff Blood Pressure Position [Right Arm] Sitting 02 Sat by Pulse Oximetry 97 100 98 Oxygen Delivery Method Room Air - Lab Data Lab results reviewed: Yes: I reviewed the patient's lab results. Lab Results 04/13/21 19:02: WBC 5.8, RBC 3.87 L, Hgb 12.5, Hct 37.0, MCV 95.4, MCH 32.4 H, MCHC 33.9, RDW 12.9, Plt Count 265, MPV 7.8, Neut % (Auto) 52.0, Lymph % (Auto) 37.9, [place] % (Auto) 4.4, Eos % (Auto) 4.2, Baso % (Auto) 1.4, Neut # (Auto) 3.0, Lymph # (Auto) 2.2, [place] # (Auto) 0.3, Eos # (Auto) 0.2, Baso # (Auto) 0.1 Result diagrams: 04/13/21 19:02 Orders (Tests/Meds): ED MEDICATIONS Discontinued Medications Generic Name Dose Route Start Last Admin Trade Name Freq PRN Reason Stop Dose Admin Ketorolac Tromethamine 30 mg 04/13/21 19:11 04/13/21 19:13 Ketorolac 30mg/Ml Vial IM 04/13/21 19:12 30 mg ONCE ONE Administration ORDERS Category Date Time Status Chest XR -- portable [XR chest portable] Stat Exams 04/13/21 18:44 Taken Troponin I Q3H Lab 04/13/21 22:00 Ordered Troponin I Q3H Lab 04/14/21 01:00 Ordered Troponin I Stat Lab 04/13/21 19:02 Received - ECG Data Tracing #1 I reviewed this ECG and interpreted as documented below: ECG initial impression date: 04/13/21 Normal Sinus Rhythm: Yes - BRODY Score for Non-Stemi Age of Patient: 60-69 years old Heart Rate: 70-89 bpm Systolic Blood Pressure: 120-139 mmhg CHF [place] Class: I-No CHF Other Risk Factors: None (Patient left AMA prior to finishing evaluation) General Adult HPI - General Chief complaint: Chest Pain Stated complaint: chest pain Time Seen by Provider: 04/13/21 19:00 Mode of Arrival: EMS Limitations: No Limitations Description of Symptoms (Recalled from ER Triage Doc. by RN): patient c/o chest pain. no SOB, no radiating pain. patient states that it started around 1700. patient had 324 ASA and one nitro in right, no relief. - History of Present Illness HPI narrative: 65-year-old female with frequent visits to the emergency room with the same symptoms of sharp pain substernally worse with movement multiple negative work-ups. Pain occurred at rest but much worse with movement. Patient still smokes lives alone able to take care of her self. Onset (ago): hour(s) (Several started in the morning) Location: chest (Substernal) Radiation: non-radiation Treatments prior to arrival: aspirin - Related Data Home Medications Medication Instructions Recorded Confirmed Meloxicam [Mobic 15 mg tab] 15 mg PO DAILY 03/20/21 04/13/21 PARoxetine HCl [Paxil] 20 mg PO DAILY 03/20/21 04/13/21 Isosorbide Mononitrate [Imdur 30mg 30 mg PO DAILY 03/29/21 04/13/21 ER tablet] Allergies Allergy/AdvReac Type Severity Reaction Status Date
--- NOTE | 2021-04-13 19:49 | PC.NURSE ---
pt states tired of waiting and wants to sign out AMA. pt explained risk of leaving AMA and verbalize understanding
[2021-04-13 19:51] VITALS: BP 144/73; PULSE 78; RESP 16; TEMP 36.8; O2SAT 98
[2021-04-13 20:17] LABS: Troponin I < 0.01 ng/ml (0.00-0.034)
== END 2021-04-13 19:53 | disposition left against medical advice (07) ==
PROVIDERS: Emergency Provider Emergency Medicine; PCP Orthopaedic Surgery
DX: R07.89 Other chest pain (principal); F17.210 Nicotine dependence, cigarettes, uncomplicated
CPT/HCPCS: 71045; 84484; 85025; 93005; 96372; 99282

== ENCOUNTER 2021-04-23 19:18 | Emergency (ER) | payer MEDICARE, SELFPAY ==
[2021-04-23 19:21] VITALS: BP 155/79; PULSE 66; RESP 18; TEMP 37; O2SAT 97; BMI 22.2
--- NOTE | 2021-04-23 19:34 | XR_ITS ---
PROCEDURE INFORMATION: Exam: XR Left Knee Exam date and time: 04/23/2021 7:34 PM Age: 65 years old Clinical indication: Injury or trauma; Blunt trauma; Knee; Patient HX: Fall, left sided pain TECHNIQUE: Imaging protocol: XR Left knee. Views: 3 views. COMPARISON: No relevant prior studies available. FINDINGS: Bones/joints: No acute fracture or dislocation. Knee joint spaces are well preserved. No significant arthritic deformities. Slight hazy cortical-periosteal thickening of the fibular neck seen on the lateral view has the appearance of chronic stress reaction or old healed trauma, no discrete fracture line visible. No significant joint effusion visible. Soft tissues: No acute findings. No radiopaque foreign bodies. No pathologic soft tissue calcification. IMPRESSION: No acute fracture or dislocation.
--- NOTE | 2021-04-23 19:34 | XR_ITS ---
PROCEDURE INFORMATION: Exam: XR Left Hip Exam date and time: 04/23/2021 7:34 PM Age: 65 years old Clinical indication: Injury or trauma; Blunt trauma (contusions or hematomas); Hip; Patient HX: Fall, left sided pain TECHNIQUE: Imaging protocol: XR Left hip. Views: 2 or 3 views hip with pelvis when performed. COMPARISON: No relevant prior studies available. FINDINGS: Bones/joints: Bones at the left hip appear intact and normally aligned. No arthritic deformities. No lytic lesions. There is hazy lobulated calcific density along the superior right pubic ramus which may be due to old healed injury, no discrete acute fracture line is seen, and the right hip appears grossly intact as visualized. Mild bilateral sacroiliitis. Mild lower lumbar degenerative changes. Soft tissues: No acute findings. Vasculature: Calcified atherosclerotic plaques in the pelvis on the right. Some rounded lower pelvic calcifications are probably phleboliths, less likely urinary tract stones. IMPRESSION: 1. No acute fracture or dislocation at the left hip. 2. Hazy lobulated calcification along the superior right pubic ramus which may be old healed trauma rather than acute injury, no discrete fracture line visible, correlate for symptoms.
--- NOTE | 2021-04-23 19:34 | XR_ITS ---
PROCEDURE INFORMATION: Exam: XR Left Humerus Exam date and time: 04/23/2021 7:34 PM Age: 65 years old Clinical indication: Injury or trauma; Blunt trauma (contusions or hematomas); Arm, upper; Patient HX: Fall, left sided pain TECHNIQUE: Imaging protocol: XR Left humerus. Views: 2 or more views. COMPARISON: No relevant prior studies available. FINDINGS: Bones/joints: Osteopenia. No acute fracture or dislocation. There are no lytic skeletal lesions seen. No significant arthritic deformities. Visualized left ribs appear intact. Lungs: No acute findings in the visualized left lung. Soft tissues: No radiopaque foreign bodies. No pathologic soft tissue calcification. IMPRESSION: No acute fracture or dislocation.
--- NOTE | 2021-04-23 19:37 | HMH.EDFALL ---
ED Disposition Clinical Impression: Accidental fall Qualifiers: Encounter type: initial encounter Qualified Code(s): W19.XXXA - Unspecified fall, initial encounter Left knee sprain Qualifiers: Encounter type: initial encounter Involved ligament of knee: unspecified ligament Qualified Code(s): S83.92XA - Sprain of unspecified site of left knee, initial encounter Sprain of left hip Qualifiers: Encounter type: initial encounter Qualified Code(s): S73.102A - Unspecified sprain of left hip, initial encounter Disposition: Home, Self-Care Condition on Discharge: Good Instructions: How to Prevent Falls - Critical Care Critical Care Time: No Attestation: On , the high probability of a clinically significant, sudden or life threatening deterioration of the following system(s) required my full and direct attention, intervention and personal management. The time I documented below is in addition to time spent performing reported procedures but includes the following listed in this critical care notation. Medical Decision Making - Medical Records Medical records reviewed: Yes: I reviewed the patient's medical records. - Price Inquiry Pt receiving controlled substance: No Vital Signs: 04/23/21 19:21 Temperature 98.6 F Temperature Source Oral Pulse Rate [Right] 66 Respiratory Rate 18 Blood Pressure [Right Arm] 155/79 H Blood Pressure Mean [Right Arm] 104 Blood Pressure Source [Right Arm] Automatic Cuff Blood Pressure Position [Right Arm] Sitting 02 Sat by Pulse Oximetry 97 Oxygen Delivery Method Room Air Orders (Tests/Meds): ED MEDICATIONS Discontinued Medications Generic Name Dose Route Start Last Admin Trade Name Freq PRN Reason Stop Dose Admin Acetaminophen 500 mg 04/23/21 19:34 Acetaminophen 500mg Tab PO 04/23/21 19:35 ONCE ONE ORDERS Category Date Time Status XR hip LT 2-3V w/pelvis Stat Exams 04/23/21 19:34 Taken XR humerus LT Stat Exams 04/23/21 19:34 Taken XR knee LT 3V Stat Exams 04/23/21 19:34 Taken - Radiology Data #1 Image(s): Humerus, Hip, Knee Image Reviewed: Yes I reviewed the patient's radiology results, Yes I reviewed the patient's radiology image Preliminary Findings: Normal/NAD, No Fracture Seen - Reevaluation(s) Time: 19:52 Reevaluation #1: On reevaluation, patient's pain is improved. There is no obvious fracture. Patient is ambulatory. Patient is to follow-up with PCP in 40 hours for repeat examination. Given strict return precautions. Verbalized understanding. Medical Decision Narrative: 65-year-old female presented to the emergency department after an axonal fall. Patient has some minor injuries to the left leg as well as left upper arm. Patient does not meet imaging criteria for the head or cervical spine. Imaging obtained. Fall HPI - General Chief Complaint: Fall Stated Complaint: fall Time Seen by Provider: 04/23/21 19:30 Mode of Arrival: EMS Limitations: No Limitations Description of Symptoms (Recalled from ER Triage Doc. by RN): Pt here via [facility] for falling at home while reaching for her umbrella. Pt c/o left knee and left upper arm pain. Pt has full ROM of all ext. Pt denies any LOC or head injury. There is no visible injury. - History of Present Illness HPI Narrative: 65-year-old female presented to the emergency department after an accidental fall. Patient states that she tripped while she was walking in her home. She landed on her left side. She complained of some left arm pain left hip pain and knee pain. Patient not sustain any trauma to the head. There is no loss of consciousness. Patient is ambulatory after the event. She denies any other injuries. No chest pain or shortness of breath. No abdominal pain or vomiting. No diarrhea. No headache or change in vision. No focal weakness. - Related Data Home Medications Medication Instructions Recorded Confirmed Meloxicam [Mobic 15 mg tab
[2021-04-23 19:58] VITALS: BP 129/66; PULSE 65; O2SAT 98
[2021-04-23 20:03] VITALS: BP 129/66; PULSE 64; RESP 16; TEMP 37; O2SAT 96
== END 2021-04-23 20:05 | disposition home or self-care (01) ==
PROVIDERS: Emergency Provider Emergency Medicine
DX: S83.92XA Sprain of unspecified site of left knee, initial encounter (principal); S73.102A Unspecified sprain of left hip, initial encounter; W01.0XXA Fall on same level from slipping, tripping and stumbling without subsequent striking against object, initial encounter; Y92.019 Unspecified place in single-family (private) house as the place of occurrence of the external cause; F17.210 Nicotine dependence, cigarettes, uncomplicated
CPT/HCPCS: 73060; 73502; 73562; 99282

== ENCOUNTER 2021-06-11 07:53 | Emergency (ER) | payer MEDICARE, SELFPAY ==
[2021-06-11 07:53] VITALS: BP 154/66; PULSE 63; RESP 16; TEMP 36.4; O2SAT 100; BMI 22.2
--- NOTE | 2021-06-11 07:54 | XR_ITS ---
PROCEDURE: XR ANKLE RT 2V CLINICAL INDICATION: pain COMPARISON: CR ANKR3 ANKLE-RT-3 VIEWS from 06/14/2013 CR ANKR3 ANKLE-RT-3 VIEWS from 06/25/2013 CR ANKR3 ANKLE-RT-3 VIEWS from 07/04/2013 CR ANKR3 ANKLE-RT-3 VIEWS from 07/10/2013 FINDINGS: No fracture or dislocation. No lytic or blastic change. There is normal mineralization. The joint spaces are well-preserved. No significant degenerative/arthritic changes. No erosive changes evident. Other findings:None. IMPRESSION: No acute findings. Dictated by: Margarito Peguero MD 06/11/2021 09:56 Margarito Peguero MD in [place] 06/11/2021 09:56
--- NOTE | 2021-06-11 07:54 | HMH.EDGENADL ---
ED Disposition Clinical Impression: Foot pain, right Disposition: Home, Self-Care Condition on Discharge: Good Instructions: DI for Acute Pain -- Adult Referrals: Provider,Referral, [Primary Care Provider] - 3 days Time of Disposition: 08:45 - Critical Care Critical Care Time: No Attestation: On , the high probability of a clinically significant, sudden or life threatening deterioration of the following system(s) required my full and direct attention, intervention and personal management. The time I documented below is in addition to time spent performing reported procedures but includes the following listed in this critical care notation. Medical Decision Making - Medical Records Medical records reviewed: Yes: I reviewed the patient's medical records. - Price Inquiry Pt receiving controlled substance: No Vital Signs: 06/11/21 07:53 06/11/21 08:30 Temperature 97.6 F Temperature Source Oral Pulse Rate 63 Pulse Rate [Right] 63 Respiratory Rate 16 18 Blood Pressure 140/78 Blood Pressure [Right Arm] 154/66 H Blood Pressure Mean 103 Blood Pressure Mean [Right Arm] 95 Blood Pressure Source [Right Arm] Automatic Cuff Blood Pressure Position [Right Arm] Supine 02 Sat by Pulse Oximetry 100 100 Oxygen Delivery Method Room Air Room Air Orders (Tests/Meds): ORDERS Category Date Time Status Ankle XR - Right 2 Views [XR ankle RT 2V] Stat Exams 06/11/21 07:54 Taken Foot XR right 2 views [XR foot RT 2V] Stat Exams 06/11/21 07:55 Taken - Radiology Data #1 Image(s): Foot/Toes Image Reviewed: Yes I reviewed the patient's radiology results Preliminary Findings: Normal/NAD #2 Image(s): Ankle Image Reviewed: Yes I reviewed the patient's radiology results Preliminary Findings: Normal/NAD Medical Decision Narrative: 66yo F evaluated for right foot and ankle pain. Patient is well-known to nursing staff here. She is in no acute distress on initial evaluation. X-rays have been ordered. X-rays of foot and ankle are negative on my wet read. Patient is appropriate and stable for discharge home. Activity as tolerated. General Adult HPI - General Chief complaint: PAIN Stated complaint: rt ankle pain Time Seen by Provider: 06/11/21 07:54 Mode of Arrival: EMS - History of Present Illness HPI narrative: 66yo F presents the emergency department via EMS from her assisted living facility secondary to right foot pain. Patient denies any injury or falls. States yesterday. No previous history of injuries to this extremities no broken bones in the past. Nothing improves her symptoms. Ambulation makes them worse. - Related Data Home Medications Medication Instructions Recorded Confirmed Meloxicam [Mobic 15 mg tab] 15 mg PO DAILY 03/20/21 04/23/21 PARoxetine HCl [Paxil] 20 mg PO DAILY 03/20/21 04/23/21 Isosorbide Mononitrate [Imdur 30mg 30 mg PO DAILY 03/29/21 04/23/21 ER tablet] Allergies Allergy/AdvReac Type Severity Reaction Status Date / Time No Known Allergies Allergy Verified 03/29/21 16:53 [facility] History - Hepatitis A Screen Drug use history?: No Attestation statement:: This patient has been screened for Hepatitis A risk factors. I have reviewed the patient's past medical history: Yes Medical History: Denies:: Congestive Heart Failure, Deep Vein Thrombosis, Diabetes Mellitus Type 1, Diabetes Mellitus Type 2 Other Medical History: Reports: Arthritis (rheumatoid) Other Surgeries: Yes: Cholecystectomy, Tubal Ligation - Social History Smoking Status: Current every day smoker Tobacco Type: cigarettes # Packs/Day (cigarettes): 1 Alcohol Intake: never Occupational Status: unemployed Housing: apartment Household Members: none Family Hx:: Non-contributory ROS Obtained: Yes All systems reviewed & no additional complaints Physical Exam - General General appearance: alert, in no apparent distress - Head Head exam: atraumatic - Eye Eye exam
--- NOTE | 2021-06-11 07:55 | XR_ITS ---
PROCEDURE: XR FOOT RT 2V CLINICAL INDICATION: pain COMPARISON: CR FTR3 FOOT-RT-3 VIEWS from 06/14/2013 FINDINGS: No fracture or dislocation. No lytic or blastic change. There is normal mineralization. Minimal osteoarthritic change 1st metatarsophalangeal joint. 3 mm small well-defined cystic area at the distal aspect of the 2nd metatarsal at the diaphyseal metaphyseal junction. There is some minimal linear sclerosis in the midshaft of the proximal phalanx of the 2nd toe nonspecific Other findings:None. IMPRESSION: No acute fracture. Mild degenerative changes Dictated by: Margarito Peguero MD 06/11/2021 09:56 Margarito Peguero MD in [place] 06/11/2021 09:56
[2021-06-11 08:30] VITALS: BP 140/78; PULSE 63; RESP 18; O2SAT 100
--- NOTE | 2021-06-11 10:02 | PC.NURSE ---
Spoke with Marlee Bardales from [facility] to update her on patient condition and that patient was getting discharged. Marlee states that she is leaving facility within the next 5 minutes and will be at hospital within the next 45 min.
[2021-06-11 10:12] VITALS: BP 157/82; PULSE 71; RESP 18; TEMP 36.4; O2SAT 99
--- NOTE | 2021-06-11 11:11 | PC.NURSE ---
attempted to call Marlee Bardales back, patients transportation back to [place], and there wasnt any answer. Voicemail left on phone to call back ER for update on ETA.
--- NOTE | 2021-06-11 11:21 | PC.NURSE ---
Marlee here to bean picker patient for transport back to facility.
== END 2021-06-11 11:21 | disposition home or self-care (01) ==
PROVIDERS: Emergency Provider Family Medicine; PCP Family Medicine
DX: M79.671 Pain in right foot (principal); F17.210 Nicotine dependence, cigarettes, uncomplicated
CPT/HCPCS: 73600; 73620; 99283

== ENCOUNTER 2021-07-26 11:35 | Day surgery (SDC) | payer MEDICARE, SELFPAY ==
[2021-07-26] VITALS (7 sets, daily range): BP systolic 110–157; BP diastolic 59–80; PULSE 56–68; RESP 13–18; TEMP 36.3–37.4; O2SAT 98–100; BMI 30.2
--- NOTE | 2021-07-26 12:40 | HMH.EDGENADL ---
ED Disposition Clinical Impression: Esophageal obstruction due to food impaction Disposition: Still a Patient Condition on Discharge: Good Referrals: Provider,Referral, [Primary Care Provider] - 3 days Time of Disposition: 13:03 - Critical Care Critical Care Time: No Attestation: On 07/26/21, the high probability of a clinically significant, sudden or life threatening deterioration of the following system(s) required my full and direct attention, intervention and personal management. The time I documented below is in addition to time spent performing reported procedures but includes the following listed in this critical care notation. Medical Decision Making - Medical Records Medical records reviewed: Yes: I reviewed the patient's medical records. - Price Inquiry Pt receiving controlled substance: No Vital Signs: 07/26/21 12:15 07/26/21 12:25 Temperature 99.3 F Temperature Source Oral Pulse Rate [Left Radial] 68 Respiratory Rate 18 Blood Pressure [Right Arm] 157/80 H Blood Pressure Mean [Right Arm] 105 Blood Pressure Source [Right Arm] Automatic Cuff Blood Pressure Position [Right Arm] Sitting 02 Sat by Pulse Oximetry 100 Oxygen Delivery Method Room Air Medical Decision Narrative: Patient's history is concerning for lodged food bolus. Patient not tolerating her own secretions on my exam. Case discussed with Dr. Suarez who redirected to consult to Dr. Wills as he is here doing scopes today. Case staffed with Dr. Wills who agrees to evaluate the patient shortly as he is preparing for his last case upstairs. General Adult HPI - General Chief complaint: PAIN Stated complaint: throat pain Time Seen by Provider: 07/26/21 12:40 Mode of Arrival: EMS Limitations: No Limitations Description of Symptoms (Recalled from ER Triage Doc. by RN): pt c/o of esphogus pain that started last night with no improvement with tums - History of Present Illness HPI narrative: 66yo F denies significant past medical history is evaluated for throat pain. Patient reports she was eating a pork chop last night at approximately 1700 when she felt to get stuck in her distal esophagus. Denies previous history of this. Denies history of EGD or esophageal dilatation. Patient smokes approximately 4 cigarettes/day. Denies alcohol use. Status post cholecystectomy but denies other abdominal surgery. Patient reports she is not tolerating her own secretions at this time. - Related Data Home Medications Medication Instructions Recorded Confirmed Meloxicam [Mobic 15 mg tab] 15 mg PO DAILY 03/20/21 04/23/21 PARoxetine HCl [Paxil] 20 mg PO DAILY 03/20/21 04/23/21 Isosorbide Mononitrate [Imdur 30mg 30 mg PO DAILY 03/29/21 04/23/21 ER tablet] Allergies Allergy/AdvReac Type Severity Reaction Status Date / Time No Known Allergies Allergy Verified 03/29/21 16:53 [facility] History - Hepatitis A Screen Drug use history?: No High risk sexual behaviors?: No History of sexually transmitted infection?: No Currently employed?: No Childcare worker?: No Do you have indoor plumbing?: Yes Do you have electricity?: Yes Attestation statement:: This patient has been screened for Hepatitis A risk factors. I have reviewed the patient's past medical history: Yes Medical History: Denies:: Congestive Heart Failure, Deep Vein Thrombosis, Diabetes Mellitus Type 1, Diabetes Mellitus Type 2 Other Medical History: Reports: Arthritis (rheumatoid) Other Surgeries: Yes: Cholecystectomy, Tubal Ligation - Social History Smoking Status: Current every day smoker Tobacco Type: cigarettes # Packs/Day (cigarettes): 1 Alcohol Intake: never Occupational Status: unemployed Housing: apartment Household Members: none Family Hx:: Non-contributory ROS Obtained: Yes All systems reviewed & no additional complaints Physical Exam - General General appearance: alert, in no apparent distress - Head Head exam: atraumatic - Eye
--- NOTE | 2021-07-26 13:47 | P.PN_ITS ---
[facility] Anesthesia Checklist - Patient Identification Patient Identification: Arm Band - Structural Data Admitted From: Emergency Dept Planned Operative Procedure/s: EGD- removal of esophageal food impaction Consent for Planned Operative Procedure(s) Verified: Yes Verified Documents: Surgical Consent, History and Physical - NPO Status Verified Time NPO: 20:00 ( pork chop last night ) - Additional verifications Anesthesia Reactions: No - Airway Assessment C-Spine Mobility Assessed: Yes (mp2) TMJ Mobility Assessed: Yes Dentition: Edentulous - Neurological Assessment Level of Consciousness: Awake, Alert - Anesthesia Plan Anesthesia Risk discussed: Yes Anesthesia Plan: Verified ASA Class: II (e) Anesthesia Type: MAC [facility] History I have reviewed the patient's past medical history: Yes Medical History: Denies:: Congestive Heart Failure, Deep Vein Thrombosis, Diabetes Mellitus Type 1, Diabetes Mellitus Type 2 *Have you ever received a pneumonia vaccine?: No *Have you received a flu vaccine this season?: No Other Medical History: Reports: Arthritis (rheumatoid) Anesthesia experience/problems:: nac Other Surgeries: Yes: Cholecystectomy, Tubal Ligation - *Social History Smoking Status: Current every day smoker Tobacco Type: cigarettes # Packs/Day (cigarettes): 1 Alcohol Intake: never Substance Use Type: denies use *Occupational Status:: unemployed Housing: apartment Household Members: none *Travel in the last 8 weeks: None Family Hx:: Non-contributory
[2021-07-26 14:12] LABS: Coronavirus 19, PCR Not Detected (NotDetected); Influenza A, PCR Not Detected (NotDetected); Influenza B, PCR Not Detected (NotDetected)
--- NOTE | 2021-07-26 14:35 | HMH.PROC ---
[facility] Procedure Note Procedure Note:: Upper Endoscopy Procedure Report: Esophagogastroduodenoscopy with cold biopsies and TTS balloon dilation Endoscopost: Luis A Wills II, MD Referring Physician: [facility] Emergency Department Date of Procedure: July 26, 2021 Equipment: Olympus GIF 190 standard upper endoscope Sedation: MAC sedation Indications: Mrs. Sagastume is a 66-year-old female from the intermediate in [place] who presents to the emergency department with esophageal food impaction. She was eating pork chops yesterday and states that these hung up. She is unable to tolerate liquids presently. She does not report any prior endoscopy. Procedure: Prior to the procedure, a history and physical exam was performed, and patient's medications and allergies were reviewed. The risks, benefits and alternatives of the sedation and procedure were discussed with the patient. All questions were answered and informed consent was obtained. The patient was brought to the procedure room. Patient identification and proposed procedure were verified by the physician and the nurse. The patient was placed in a left lateral decubitus position and the scope was passed under direct vision. Throughout the procedure, the patient's blood pressure, pulse, and oxygen saturations were monitored continuously. The upper GI endoscopy was accomplished without difficulty. The patient tolerated the procedure well. Findings: The scope was passed directly into the upper esophagus. There was a food bolus in the distal esophagus. The scope was easily advanced beyond this to the third portion of the duodenum. The post bulbar duodenum and duodenal bulb were normal with normal mucosa and conniventes. The scope was withdrawn through a normal duodenal bulb and pylorus into the stomach. There was some gastric atrophy with chronic gastritis of the body and fundus of the stomach. Cold biopsies were obtained from the body and fundus of the stomach. There was a very small sliding 1 to 2 cm hiatal hernia. The scope was then withdrawn into the esophagus. There was a distal esophageal ring/Schatzki's ring that was dilated to 20 mm with a TTS hydrostatic balloon. After the dilation, the food bolus was pushed directly into the stomach readily. There was no evidence of reflux esophagitis or Elizalde's. Biopsies were taken at the GE junction to rule out reflux changes. The procedure was then ended. Impression: 1. Esophageal food impaction/food bolus secondary to Schatzki's ring status post clearance of food bolus and dilation of ring 2. Chronic atrophic gastritis Plan: I will follow-up the biopsies. The patient should have clinical improvement with dilation of the ring.
== END 2021-07-26 13:02 ==
LOC: ER 07-28 10:55 → SDC 07-28 11:02
PROVIDERS: Emergency Provider Family Medicine; Visit Provider Internal Medicine Gastroenterology
PROC: 0DJ08ZZ Inspection of Upper Intestinal Tract, Via Natural or Artificial Opening Endoscopic (ICD-10-PCS; CPT 43235; principal; 2021-07-26 13:30)
DX: K22.70 Barrett's esophagus without dysplasia (principal); K22.2 Esophageal obstruction; K44.9 Diaphragmatic hernia without obstruction or gangrene; K29.40 Chronic atrophic gastritis without bleeding
CPT/HCPCS: 43239; 43249; 88305; C1726; C9803; U0003; U0005

== ENCOUNTER 2021-11-01 13:22 | Emergency (ER) | payer MEDICARE, SELFPAY ==
[2021-11-01] VITALS (9 sets, daily range): BP systolic 115–135; BP diastolic 68–77; PULSE 66–78; RESP 12–16; TEMP 36.6–37.2; O2SAT 96–100; BMI 20.2
--- NOTE | 2021-11-01 13:32 | XR_ITS ---
PROCEDURE: XR FOREARM RT 2V CLINICAL INDICATION: fall COMPARISON: No exams were available for comparison FINDINGS: The radius and ulna an unremarkable appearance. There is some cortical regularity along the dorsal and mid aspect of the wrist in the triquetrum region. Please correlate as the patient's area pain and tenderness. There is mild widening of the scapho trapezium joint. Otherwise unremarkable. The joint spaces are well-preserved. No significant degenerative/arthritic changes. No erosive changes evident. Other findings:None. IMPRESSION: Negative radius and ulna. Questionable cortical regularity at the triquetrum region widening of the scapho trapezium joint. Please correlate clinical findings. And mild Dictated by: Margarito Peguero MD 11/01/2021 15:20 Margarito Peguero MD in [place] 11/01/2021 15:20
--- NOTE | 2021-11-01 13:32 | XR_ITS ---
PROCEDURE: XR ELBOW RT 2V CLINICAL INDICATION: fall COMPARISON: No exams were available for comparison FINDINGS: No fracture or dislocation. No lytic or blastic change. There is normal mineralization. The joint spaces are well-preserved. No significant degenerative/arthritic changes. No erosive changes evident. Other findings:None. IMPRESSION: No acute findings. Dictated by: Margarito Peguero MD 11/01/2021 15:22 Margarito Peguero MD in [place] 11/01/2021 15:22
--- NOTE | 2021-11-01 13:32 | XR_ITS ---
PROCEDURE: XR HUMERUS RT CLINICAL INDICATION: fall COMPARISON: CR XR HUMERUS LT from 04/23/2021 FINDINGS: No fracture or dislocation. No lytic or blastic change. There is normal mineralization. The joint spaces are well-preserved. No significant degenerative/arthritic changes. No erosive changes evident. Other findings:None. IMPRESSION: No acute findings. Dictated by: Margarito Peguero MD 11/01/2021 15:17 Margarito Peguero MD in [place] 11/01/2021 15:17
--- NOTE | 2021-11-01 13:33 | HMH.EDGENADL ---
ED Disposition Clinical Impression: Right wrist sprain Qualifiers: Encounter type: initial encounter Qualified Code(s): S63.501A - Unspecified sprain of right wrist, initial encounter Disposition: Home, Self-Care Condition on Discharge: Good Instructions: DI for Wrist Sprain Additional Instructions: You have been evaluated for fall, arm pain. There is no injury of your upper arm, elbow, forearm. There is an abnormality at your wrist, concerning for a ligament injury. Please keep wrist splint in place. Follow-up with Dr. Velazquez of orthopedics. Tylenol and Motrin for pain. Return to the emergency department for any new or worsening symptoms. Use care to avoid falls. Referrals: Provider,MD Franci [Referring] - Jonatan Velazquez MD [Staff Physician] - Time of Disposition: 16:16 - Critical Care Critical Care Time: No Attestation: On 11/01/21, the high probability of a clinically significant, sudden or life threatening deterioration of the following system(s) required my full and direct attention, intervention and personal management. The time I documented below is in addition to time spent performing reported procedures but includes the following listed in this critical care notation. Medical Decision Making - Medical Records Medical records reviewed: Yes: I reviewed the patient's medical records. - Price Inquiry Pt receiving controlled substance: No Vital Signs: 11/01/21 13:23 11/01/21 15:03 11/01/21 15:30 Temperature 99 F Temperature Source Oral Pulse Rate 69 66 Pulse Rate [Radial] 74 Respiratory Rate 16 16 12 Blood Pressure 117/76 127/71 Blood Pressure [Right Arm] 134/74 Blood Pressure Mean 96 92 Blood Pressure Mean [Right Arm] 94 Blood Pressure Position [Right Arm] Sitting 02 Sat by Pulse Oximetry 98 100 96 Oxygen Delivery Method Room Air 11/01/21 16:00 11/01/21 16:30 11/01/21 17:00 Temperature Temperature Source Pulse Rate 66 72 69 Pulse Rate [Radial] Respiratory Rate 14 16 15 Blood Pressure 128/74 115/75 118/76 Blood Pressure [Right Arm] Blood Pressure Mean 95 Blood Pressure Mean [Right Arm] Blood Pressure Position [Right Arm] 02 Sat by Pulse Oximetry 100 99 99 Oxygen Delivery Method 11/01/21 17:30 11/01/21 18:00 11/01/21 18:37 Temperature 98 F Temperature Source Oral Pulse Rate 66 69 78 Pulse Rate [Radial] Respiratory Rate 16 15 16 Blood Pressure 131/75 121/77 135/68 Blood Pressure [Right Arm] Blood Pressure Mean Blood Pressure Mean [Right Arm] Blood Pressure Position [Right Arm] 02 Sat by Pulse Oximetry 100 100 Oxygen Delivery Method Room Air - Radiology Data #1 Image(s): Forearm, Wrist IMPRESSION: Negative radius and ulna. Questionable cortical regularity at the triquetrum region widening of the scapho trapezium joint. Please correlate clinical findings. And mild Medical Decision Narrative: In summary this is a 66-year-old [id number] female presenting to the emergency department with right arm pain after a fall. Patient clinically stable on arrival. Vital signs within normal limits. Concern for forearm contusion, humerus fracture, ulnar fracture, elbow fracture. Will obtain x-rays of the right forearm, elbow, humerus X-rays of the humerus, elbow, forearm are unrevealing. There is possibly a cortical irregularity of the triquetrium, near the scaphoid. Patient is not particularly tender over this area. Will obtain dedicated wrist films. Wrist films again show an irregular spacing, concerning for ligamentous injury. While patient is not particularly tender, will place into a splint. Given Ortho follow-up. Counseled on Tylenol and Motrin for pain. General Adult HPI - General Chief complaint: PAIN Stated complaint: arm pain Time Seen by Provider: 11/01/21 13:33 Mode of Arrival: EMS Limitations: No Limitations Description of Symptoms (Recalled from ER Triage Doc. by RN): T
--- NOTE | 2021-11-01 15:38 | XR_ITS ---
PROCEDURE: XR WRIST RT MIN 3V CLINICAL INDICATION: wrist pain COMPARISON: No exams were available for comparison FINDINGS: There is mild prominence of the scapho trapezium joint. No acute fracture or dislocation. No obvious trapezium fracture. The joint spaces are well-preserved. No significant degenerative/arthritic changes. No erosive changes evident. Other findings:None. IMPRESSION: 1. Mild prominence of the scapho trapezium joint which may be seen with ligamentous injury. 2. No fracture apparent. Dictated by: Margarito Peguero MD 11/01/2021 15:57 Margarito Peguero MD in [place] 11/01/2021 15:57
--- NOTE | 2021-11-01 17:00 | PC.NURSE ---
ATTEMPTED TO CALL [facility] [place], NO ANSWER
--- NOTE | 2021-11-01 17:30 | PC.NURSE ---
ATTEMPTED TO CALL [facility] NO ANSWER
--- NOTE | 2021-11-01 17:45 | PC.NURSE ---
ATTEMPTED TO CALL PT'S CONTACT NO ANSWER
--- NOTE | 2021-11-01 18:10 | PC.NURSE ---
[facility] RETURN CALL, WILL COME TO ED TO TAKE PT BACK TO [facility]
--- NOTE | 2021-11-01 18:29 | PC.NURSE ---
Called number provided by [facility] dispatch for facility. 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
== END 2021-11-01 18:39 | disposition home or self-care (01) ==
PROVIDERS: Emergency Provider Emergency Medicine; PCP Internal Medicine Cardiovascular Disease
DX: S63.501A Unspecified sprain of right wrist, initial encounter (principal); W01.0XXA Fall on same level from slipping, tripping and stumbling without subsequent striking against object, initial encounter; Y93.01 Activity, walking, marching and hiking; Y92.480 Sidewalk as the place of occurrence of the external cause; F17.210 Nicotine dependence, cigarettes, uncomplicated
CPT/HCPCS: 29125; 73060; 73070; 73090; 73110; 99283